=== PATIENT | female | born 1925 | race Caucasian/White ===

== ENCOUNTER 2016-06-24 11:55 | Observation (INO) | payer MEDICARE, BC, OTHER ==
[2016-06-24] MEDS ORDERED: ASPIRIN 81 MG CHEWABLE TABLET PO ONE (12:28)
[2016-06-24 13:18] LABS: BASO % 0.2 % (0-6); EOS % 0.4 % (0-6); GRAN % 70.3 % (47-80); HEMATOCRIT 42.8 % (35.0-47.0); HEMOGLOBIN 13.8 gm/dl (11.6-16.0); LYMPH % 24.8 % (16-45); MEAN CELL VOLUME 92.2 fl (81-97); MEAN CORPUSCULAR HEMOGLOBIN 29.7 pg (27-33); MEAN CORPUSCULAR HGB CONC 32.2 g/dl (32-36); MEAN PLATELET VOLUME 10.6 fl (7.4-10.4); MONO % 4.3 % (0-9); PLATELET COUNT 362 K/uL (130-400); RED BLOOD COUNT 4.64 M/uL (3.80-5.40); RED CELL DISTRIBUTION WIDTH 13.5 % (11.5-14.5); WHITE BLOOD COUNT W/O DIFF 12.7 K/uL (4.2-12.2)
[2016-06-24] MEDS: NITROGLYCERIN 0.4MG SL TABLET #25 BTL SL PRN ×2 (13:25→13:33)
[2016-06-24 13:34] LABS: ALB/GLOB RATIO 1.1 (1.1-1.8); ALBUMIN 3.6 gm/dL (3.5-5.0); ALKALINE PHOSPHATASE 92 U/L (38-126); ALT/SGPT 30 U/L (9-52); ANION GAP 10.4 (7-16); AST/SGOT 15 U/L (14-36); BILIRUBIN,TOTAL 0.62 mg/dL (0.2-1.3); BLOOD UREA NITROGEN 35 mg/dL (7-17); CARBON DIOXIDE 25.6 mmol/L (22-30); CREATINE PHOSPHOKINASE < 20 U/L (30-135); CREATININE 1.4 mg/dL (0.52-1.04); EST GLOMERULAR FILTRATION RATE 38 ml/min; GLUCOSE,RANDOM 103 mg/dL (70-110); TOTAL PROTEIN 6.9 gm/dL (6.3-8.2)
[2016-06-24 13:46] LABS: CKMB 0.5 ug/L (0-6)
[2016-06-24 13:58] LABS: TROPONIN I < 0.012 ng/mL (0.00-0.034)
--- NOTE | 2016-06-24 14:20 | Emergency Department Record ---
History of Present Illness - General Chief Complaint: Chest Pain Stated Complaint: WEAKNESS/CHEST DISCOMFORT Time Seen by Provider: 06/24/16 12:19 Source: Patient, Family Mode of Arrival: Wheelchair Limitations: No limitations - History of Present Illness Initial Comments: pt has been having cp intermittantly over the last few days. no n/. it goes thru to her back. no radiation. she is sob with it. MD Complaint: Chest pain Onset/Timin -: Days(s) Pain Location: Substernal Pain Radiation: None Severity: Mild Severity scale (1-10): 4 Quality: Aching, Heaviness Improves With: Nothing Worsens With: Nothing Anginal Symptoms: Dyspnea Treatments Prior to Arrival: None - Related Data Home Medications Medication Instructions Recorded Confirmed Last Taken Atenolol [Tenormin] 100 mg PO BID 02/14/14 06/24/16 1 Day Ago ~06/23/16 Levothyroxine Sodium [Synthroid] 50 mcg PO DAILY 02/14/14 06/24/16 1 Day Ago ~06/23/16 Lisinopril [Zestril] 20 mg PO BID 02/14/14 06/24/16 1 Day Ago ~06/23/16 Omeprazole [Prilosec] 20 mg PO DAILY 02/14/14 06/24/16 1 Day Ago ~06/23/16 Potassium Citrate [Potassium 10 meq PO BID 02/14/14 06/24/16 1 Day Ago Citrate ER] ~06/23/16 Simvastatin [Zocor] 40 mg PO QHS 02/14/14 06/24/16 1 Day Ago ~06/23/16 Aspirin [Adult Low Dose Aspirin EC] 81 mg PO DAILY 04/17/15 06/24/16 1 Day Ago ~06/23/16 Diltiazem HCl [Diltiazem 24Hr ER] 120 mg PO DAILY 04/17/15 06/24/16 1 Day Ago ~06/23/16 Multivit-Min/FA/Lycopene/Lut 1 each PO DAILY 04/17/15 06/24/16 1 Day Ago [Centrum Silver Tablet] ~06/23/16 Indapamide [Lozol] 2.5 mg PO DAILY 09/20/15 06/24/16 1 Day Ago ~06/23/16 Losartan Potassium [Cozaar] 100 mg PO DAILY 09/20/15 06/24/16 1 Day Ago ~06/23/16 Previous Rx's Medication Instructions Recorded Sucralfate [Carafate] 1 gm PO QID #28 tablet 09/20/15 Allergies Allergy/AdvReac Type Severity Reaction Status Date / Time No Known Drug Allergies Allergy Verified 06/24/16 12:10 Travel Screening - Travel/Exposure Within Last 30 Days Have you traveled within the last 30 days?: No - Travel/Exposure Within Last Year Have you traveled outside the [place] in the last year?: No - Additonal Travel Details Have you been exposed to anyone with a communicable illness?: No - Travel Symptoms Symptom Screening: None Review of Systems Reviewed: No additional complaints except as noted below Constitutional: Reports: As per HPI. Denies: Chills, Fever, Malaise, Night sweats, Weakness, Weight change Eyes: Reports: As per HPI. Denies: Eye discharge, Eye pain, Photophobia, Vision change ENT: Reports: As per HPI. Denies: Congestion, Dental pain, Ear pain, Epistaxis , Hearing loss, Throat pain Respiratory: Reports: As per HPI. Denies: Cough, Dyspnea, Hemoptysis, Stridor, Wheezes Cardiovascular: Reports: As per HPI. Denies: Arrhythmia, Chest pain, Dyspnea on exertion, Edema, Murmurs, Orthopnea, Palpitations, Paroxysmal nocturnal dyspnea, Rheumatic Fever, Syncope Endocrine: Reports: As per HPI. Denies: Fatigue, Heat or cold intolerance, Polydipsia, Polyuria Gastrointestinal: Reports: As per HPI. Denies: Abdominal pain, Constipation, Diarrhea, Hematemesis, Hematochezia, Melena, Nausea, Vomiting Genitourinary: Reports: As per HPI. Denies: Abnormal menses, Discharge, Dyspareunia, Dysuria, Frequency, Hematuria, Incontinence, Retention, Urgency Musculoskeletal: Reports: As per HPI. Denies: Arthralgia, Back pain, Gout, Joint swelling, Myalgia, Neck pain Skin: Reports: As per HPI. Denies: Bruising, Change in color, Change in hair/ nails, Lesions, Pruritus, Rash Neurological: Reports: As per HPI. Denies: Abnormal gait, Confusion, Headache, Numbness, Paresthesias, Seizure, Tingling, Tremors, Vertigo, Weakness Psychiatric: Reports: As per HPI. Denies: Anxiety, Auditory hallucinations, Depression, Homicidal thoughts, Suicidal thoughts, Visual hallucinations Hematological/Lymphatic: Reports: As per HPI. Denies: Anemia, Blood Clots, Easy bleeding, Easy bruising, Swollen glands Past Medical History - SOCIAL HISTORY Smoking Status: Never smoker Alcohol Use: None Drug Use: None - RESPIRATORY Hx Respiratory Disorders: No - CARDIOVASCULAR Hx Hypertension: Yes - NEURO Hx Neuro Disorders: No - GI Hx Reflux: Yes Comment:: diarrhea last 3 days - Hx Genitourinary Disorders: No Hx UTI: Yes (recent) - ENDOCRINE Hx Diabetes: No Hx Thyroid Disease: Yes - MUSCULOSKELETAL Hx Arthritis: Yes - PSYCH Hx Psych Problems: No - HEMATOLOGY/ONCOLOGY Hx Hematology/Oncology Disorders: No Family Medical History Any Significant Family History?: Yes Physical Exam - General General Appearance: Alert, Oriented x3, Cooperative, Mild distress - Head Head exam: Normal inspection - Eye Eye exam: Normal appearance, PERRL, EOMI Pupils: Normal accommodation - ENT ENT exam: Normal exam, Mucous membranes moist, Normal external ear exam, Normal orophraynx Ear exam: Normal external inspection. negative: External canal tenderness Nasal Exam: Normal inspection. negative: Discharge, Sinus tenderness Mouth exam: Normal external inspection, Tongue normal Teeth exam: Normal inspection. negative: Dental caries Throat exam: Normal inspection. negative: Tonsillar erythema, Tonsillar exudate - Neck Neck exam: Normal inspection, Full ROM. negative: Tenderness - Respiratory Respiratory exam: Normal lung sounds bilaterally. negative: Respiratory distress - Cardiovascular Cardiovascular Exam: Regular rate, Normal rhythm, Normal heart sounds - GI/Abdominal GI/Abdominal exam: Soft, Normal bowel sounds. negative: Tenderness - Rectal Rectal exam: Deferred - exam: Deferred - Extremities Extremities exam: Normal inspection, Full ROM, Normal capillary refill. negative: Tenderness - Back Back exam: Reports: Normal inspection, Full ROM, Tenderness. Denies: Muscle spasm, Rash noted - Neurological Neurological exam: Alert, Normal gait, Oriented X3, Reflexes normal - Psychiatric Psychiatric exam: Normal affect, Normal mood - Skin Skin exam: Dry, Intact, Normal color, Warm Course Vital Signs 06/24/16 06/24/16 06/24/16 12:01 13:20 13:26 Temperature 98.3 F Pulse Rate 63 Pulse Rate [ 63 64 [employer] ] Respiratory 18 16 16 Rate Blood Pressure 189/71 Blood Pressure 181/66 182/86 [Right Arm] Pulse Ox 100 99 100 06/24/16 06/24/16 13:31 14:12 Temperature 98.4 F Pulse Rate Pulse Rate [ 66 55 L [employer]r ] Respiratory 16 16 Rate Blood Pressure Blood Pressure 122/65 155/64 [Right Arm] Pulse Ox 98 99 - Reevaluation(s) Reevaluation #1: 06/24/16 14:20 pts cp gt better with 2 ntg. Medical Decision Making - Management Options MDM Management: Additional Work-up Planned (e.g. ADM/Transfer/OP Study) - Data Complexity MDM Data: Labs Ordered and/or Reviewed, X-Ray Ordered and/or Reviewed, EKG Ordered and/or Reviewed - Lab Data Result diagrams: 06/24/16 12:20 06/24/16 12:20 Lab Results 06/24/16 06/24/16 Range/Units 12:20 12:20 WBC 12.7 H (4.2-12.2) K/uL RBC 4.64 (3.80-5.40) M/uL Hgb 13.8 (11.6-16.0) gm/dl Hct 42.8 (35.0-47.0) % MCV 92.2 (81-97) fl MCH 29.7 (27-33) pg MCHC 32.2 (32-36) g/dl RDW 13.5 (11.5-14.5) % Plt Count 362 (130-400) K/uL MPV 10.6 H (7.4-10.4) fl Gran % 70.3 (47-80) % Lymphocytes % 24.8 (16-45) % Monocytes % 4.3 (0-9) % Eosinophils % 0.4 (0-6) % Basophils % 0.2 (0-6) % Sodium 138 (136-145) mmol/L Potassium 4.0 (3.5-5.1) mmol/L Chloride 102 (98-107) mmol/L Carbon Dioxide 25.6 (22-30) mmol/L Anion Gap 10.4 (7-16) BUN 35 H (7-17) mg/dL Creatinine 1.4 H (0.52-1.04) mg/dL Estimated GFR 38 ml/min Random Glucose 103 (70-110) mg/dL Calcium 8.8 (8.5-10.1) mg/dL Total Bilirubin 0.62 (0.2-1.3) mg/dL AST 15 (14-36) U/L ALT 30 (9-52) U/L Alkaline Phosphatase 92 (38-126) U/L Creatine Kinase < 20 L (30-135) U/L CK-MB (CK-2) 0.5 (0-6) ug/L Troponin I < 0.012 (0.00-0.034) ng/mL Total Protein 6.9 (6.3-8.2) gm/dL Albumin 3.6 (3.5-5.0) gm/dL Globulin 3.3 (1.4-4.8) gm/dL Albumin/Globulin Ratio 1.1 (1.1-1.8) - EKG Data -: EKG Interpreted by Me EKG: No Acute Changes - Radiology Data Radiology results: Report reviewed, Image reviewed Disposition Disposition: Admit Clinical Impression: Compression fracture of body of thoracic vertebra Chest pain Qualifiers: Chest pain type: unspecified Qualified Code(s): R07.9 - Chest pain, unspecified Disposition: Still a Patient at [facility] Decision to Admit: Admit from ER Decision to Admit Date: 06/24/16 Decision to Admit Time: 14:23 Forms: Patient Portal Access
[2016-06-24] MEDS ORDERED: ACETAMINOPHEN 500 MG TABLET PO PRN (16:23)
[2016-06-24 20:29] LABS: CKMB 0.4 ug/L (0-6); TROPONIN I < 0.012 ng/mL (0.00-0.034)
[2016-06-24] MEDS ORDERED: SIMVASTATIN 20 MG TABLET PO SCH (22:00)
[2016-06-24] MEDS ORDERED: POTASSIUM CITRATE 10 MEQ PO SCH (22:00)
[2016-06-24] MEDS ORDERED: ATENOLOL 50 MG TABLET PO SCH (22:00)
[2016-06-24] MEDS ORDERED: LISINOPRIL 20 MG TABLET PO SCH (22:00)
[2016-06-24] MEDS: SUCRALFATE 1 G/10 ML UD PO SCH (22:56)
[2016-06-25 04:37] LABS: CKMB 0.4 ug/L (0-6); TROPONIN I < 0.012 ng/mL (0.00-0.034)
[2016-06-25] MEDS ORDERED: PANTOPRAZOLE SODIUM 40 MG TABLET PO SCH (07:00)
--- NOTE | 2016-06-25 07:14 | RADIOLOGY REPORT ---
EXAM: CHEST, TWO VIEWS HISTORY: TWO WEEKS MID CHEST PAIN RADIATES TO BACK. TECHNIQUE: Two views of the chest were obtained. Comparison: Chest x-ray 09/20/15. FINDINGS: The lungs are clear. The cardiac silhouette is not enlarged. Chronic elevation of the right hemidiaphragm. Mild wedge deformity in the mid to lower lumbar spine not seen previously. Osteopenia. IMPRESSION: 1. NO ACUTE INTRATHORACIC PROCESS. 2. OSTEOPENIA. MILD WEDGE DEFORMITY IN THE MID TO LOWER THORACIC SPINE NEW FROM PRIOR STUDY LIKELY DUE TO BENIGN OSTEOPOROTIC COMPRESSION FRACTURE. JOB NUMBER: [id number] MTDD
[2016-06-25] MEDS: SUCRALFATE 1 G/10 ML UD PO SCH ×3 (07:16→14:06)
--- NOTE | 2016-06-25 09:51 | History and Physical Report ---
DATE OF ADMISSION: 06/24/2016 CHIEF COMPLAINT: Chest pain and thoracic back pain. HISTORY OF CHIEF COMPLAINT: The patient states intermittent chest pain for the last few days. Came back this morning about 7:30 a.m. She states that she was short of breath, came into the hospital for evaluation. She also felt dizzy. The pain has been on and off for the last week. She says it seems to be more in the thoracic back area than it is in the chest area but it does go front to back. She also states she has weakness. She recently had her blood pressure medication increased by me about 2 weeks ago because of the high blood pressure. She has less energy than usual. She was admitted with a diagnosis of chest pain. Also, she has occult compression fracture in the body of the thoracic vertebrae. The small compression fracture incidental finding on a chest x-ray. She does have pain in the thoracic back when I palpate it. She states that the pain is mostly a heavy feeling in the chest but also when she moves her shoulders and back, it seems to be worse. MEDICAL HISTORY: Hypertension, GERD, diarrhea for the last 3 days, hypothyroidism, arthritis. SURGICAL HISTORY: Appendectomy and hysterectomy. CURRENT MEDICATIONS: 1. Zestril 20 mg b.i.d. 2. Carafate 1 g q.i.d. 3. Zocor 40 mg at h.s. 4. Potassium chloride 1 b.i.d. 5. Omeprazole 20 mg daily. 6. Multiple vitamins. 7. Centrum Silver 1 a day. 8. Losartan 100 mg daily. 9. Levothyroxine 50 mcg daily. 10. Lozol 2.5 daily. 11. Diltiazem 120 mg daily. 12. Tenormin 100 mg b.i.d. 13. Aspirin 81 mg daily. This list seems to be a little bit out of date. I will check with the office to see what her current medications are. This is what is in our computer at [facility]. ALLERGIES: No known drug allergies. FAMILY AND PSYCHOSOCIAL HISTORY: Nothing significant. She never smoked. No alcohol use. SYSTEMS REVIEW: HEENT: No upper respiratory infection symptoms, cough, cold, or congestion. Cardiovascular: See chief complaint. Chest pain and thoracic back pain. Respiratory: Shortness of breath. She was short of breath. No longer shortness of breath after 3 nitroglycerins. No cough, cold, or congestion. Gastrointestinal: She does have some epigastric abdominal discomfort at times after eating. She did not eat today. No heartburn at this time. No dysphagia. Genitourinary: No dysuria, hematuria, frequency, or burning on urination. Musculoskeletal: She has arthritis in her back and her legs. Neurological: No CVA, paralysis, or paresthesias. Endocrine: She has hypothyroidism. No diabetes. Integument: No rash, ulcerative change of moles, yellow skin. PHYSICAL EXAMINATION: VITAL SIGNS: Height 5 feet 1 inch, weight 120 pounds. Temperature 98.4, pulse 55 , blood pressure 155/64, respiratory rate 16, saturation 99% on room air. HEENT: Pupils are equal, round, and reactive to light and accommodation. Extraocular movements are intact. Throat is clear. Nose is clear. Tympanic membranes are haddad. NECK: Supple. No jugular venous distention. No hepatojugular reflux. No carotid bruits. Thyroid is smooth. CARDIOVASCULAR: Regular rate and rhythm without murmurs, rubs, clicks, or gallops. RESPIRATORY: Clear to auscultation. Breath sounds equal bilaterally. ABDOMEN: Soft, nontender. No hepatosplenomegaly. There is some tenderness in the right lower quadrant. Bowel sounds are active. EXTREMITIES: No pitting edema. No cyanosis. No clubbing. Full range of motion. Peripheral pulses good. BREASTS/GYNECOLOGICAL/RECTAL: Exams deferred. NEUROLOGIC: Cranial nerves II-XII intact. No gross defects. Sensation normal. Strength normal. Deep tissue injury equal bilaterally. Babinski negative. MENTAL STATUS: Alert and oriented x3. IMPRESSION: 1. Chest pain. 2. Compression fracture of the thoracic spine, mild. 3. Rule out angina. 4. Rule out acute coronary syndrome. 5. Hypothyroidism. 6. Hypertension. 7. Osteoarthritis. PLAN: Serial cardiac enzymes. Serial EKGs. Further evaluation of the compression fracture. [facility]
[2016-06-25] MEDS ORDERED: INDAPAMIDE 2.5 MG TABLET PO SCH (10:00)
[2016-06-25] MEDS ORDERED: ASPIRIN 325 MG TAB ENTERIC-COATED PO SCH (10:00)
[2016-06-25] MEDS ORDERED: LOSARTAN POTASSIUM 100 MG TABLET PO SCH (10:00)
[2016-06-25] MEDS ORDERED: LEVOTHYROXINE SODIUM 50 MCG TABLET PO SCH (10:00)
[2016-06-25] MEDS ORDERED: DILTIAZEM HCL 120 MG ER CAPSULE PO SCH ×2 (10:00)
--- NOTE | 2016-06-25 17:42 | Discharge Note ---
VTE H&P Assessment - Risk for VTE Risk for VTE: No Risk Level: Low Risk Assessment Date: 06/24/16 Risk Assessment Time: 08:00 VTE Orders Placed or Will Be Placed: No VTE Reason for No Prophylaxis: Not Indicated Discharge Medications - Discharge Medications Home Medications: Ambulatory Orders Levothyroxine Sodium [Synthroid] 50 mcg PO DAILY 02/14/14 [Last Taken 1 Day Ago ~06/23/16] Omeprazole [Prilosec] 20 mg PO DAILY 02/14/14 [Last Taken 1 Day Ago ~06/23/16] Simvastatin [Zocor] 40 mg PO QHS 02/14/14 [Last Taken 1 Day Ago ~06/23/16] Aspirin [Adult Low Dose Aspirin EC] 81 mg PO DAILY 04/17/15 [Last Taken 1 Day Ago ~06/23/16] Diltiazem HCl [Diltiazem 24Hr ER] 240 mg PO DAILY 04/17/15 [Last Taken 1 Day Ago ~06/23/16] Multivit-Min/FA/Lycopen/Lutein [Centrum Silver Tablet] 1 each PO DAILY 04/17/15 [Last Taken 1 Day Ago ~06/23/16] Losartan Potassium [Cozaar] 100 mg PO DAILY 09/20/15 [Last Taken 1 Day Ago ~09/02] Acetaminophen [Tylenol 500Mg Tab] 1,000 mg PO Q6H PRN 06/25/16 [Last Taken Unknown] Diltiazem HCl [Cardizem Cd] 240 mg PO DAILY 06/25/16 [Last Taken Unknown] Donepezil HCl [Aricept] 5 mg PO QHS 06/25/16 [Last Taken Unknown] Hydrochlorothiazide 12.5 mg PO DAILY 06/25/16 [Last Taken Unknown] Discharge Note - Date Date of Discharge Note: 06/25/16 Disposition: Home, Self-Care Additional Instructions: follow up with Dr. Whitney on friday at 10:00am Forms: Patient Portal Access
--- NOTE | 2016-06-26 09:50 | Discharge Summary ---
DATE OF ADMISSION: 06/24/2016 DATE OF DISCHARGE: 06/25/2016 DISCHARGE DIAGNOSES: 1. Mild compression fracture of T10. 2. Chest pain secondary to compression fracture of T10. 3. Hypertension. 4. GERD. 5. Early dementia. ATTENDING PHYSICIAN: Pino Whitney D.O. REASON FOR HOSPITALIZATION: Chest pain and thoracic back pain. HISTORY OF PRESENT ILLNESS: This 89-year-old female presented with intermittent chest pain. She states it comes from her back and radiates up into her chest. She states she was a little short of breath. It is kind of on and off since 7:30 on the day of admission. She was a little dizzy. They brought her in for evaluation. She has had this pain on and off for the last week. She seems to be worse in the thoracic back area versus the anterior chest area. She also states she has weakness. She recently had her blood pressure medication increased by me in the office about 2 weeks ago. She has less energy than usual. She was admitted to the hospital for serial cardiac enzymes, serial EKGs, and further evaluation. The pain is worse when she moves her shoulders and back. SIGNIFICANT FINDINGS FROM EXAMINATION: Serial cardiac enzymes were negative x 3 time points. EKG showing incomplete right bundle branch block, no ST-T wave changes and the serial EKGs remained the same. Chest x-ray showing no acute thoracic process, mild wedge deformity in the mid to lower thoracic spine, new from a prior study on 09/20/2015, likely due to a benign osteoporotic compression fracture. THERAPY: In the emergency department she was given 3 nitros which seemed to alleviate the pain but she stated when I palpated or moved her back it hurt again and when I talked to her she said the pain actually did not go totally away, it just kind of seemed to get better. HOSPITAL COURSE: The patient is doing well, walking the floor without difficulty, anxious to go home. CONDITION AT DISCHARGE: Much improved. DISCHARGE INSTRUCTIONS: Follow up with Dr. Whitney in 6 days, on July 01, on Friday, 10 a.m. Continue her home medications of: 1. Hydrochlorothiazide 12.5 daily. 2. Diltiazem 240 mg daily. 3. Simvastatin 40 mg at h.s. 4. Donezepil 5 mg nightly. 5. Levothyroxine 50 mcg daily. 6. Losartan 100 mg daily. 7. Multiple vitamins 1 a day. Return to the emergency department if she has any more problems. DO EDWIN Chicas
[2016-06-26] MEDS ORDERED: DILTIAZEM 240 MG CAP CR PO SCH (10:00)
== END 2016-06-25 19:00 | disposition home or self-care (01) ==
LOC: ER 11:55 → MEDSURG 16:04
PROVIDERS: ADMIT Emergency Medicine; ATTEND Emergency Medicine
DX: S22.000A Wedge compression fracture of unspecified thoracic vertebra, initial encounter for closed fracture (principal); I10 Essential (primary) hypertension; E03.9 Hypothyroidism, unspecified; R53.1 Weakness; Z79.82 Long term (current) use of aspirin; F03.90 Unspecified dementia, unspecified severity, without behavioral disturbance, psychotic disturbance, mood disturbance, and anxiety; R07.89 Other chest pain
CPT/HCPCS: 71020; 80053; 82550; 82553; 84484; 85025; 93005; 93010; 94760; 99217; 99220; 99285